=== PATIENT | male | born 1980 | race Caucasian/White ===

== ENCOUNTER 2016-11-10 19:18 | Emergency (ER) ==
[2016-11-10 19:34] VITALS: BP 138/94; TEMP 99; BMI 36.6
[2016-11-10] MEDS ORDERED: ROCEPHIN IM STA (19:40)
[2016-11-10] MEDS ORDERED: LIDOCAINE 1 % AMP 5 ML (SUTURES) IM STA (19:40)
[2016-11-10] MEDS ORDERED: TORADOL IM STA (19:40)
--- NOTE | 2016-11-10 19:44 | ED.PDOC ---
General ED Provider: Dr. GINNY CHARLES-ER Chief Complaint: Earache Stated Complaint: my ear hurts but i am not nauseated any more Time Seen by Physician: 19:35 Mode of Arrival: Walk-In Information Source: Patient Exam Limitations: No limitations Primary Care Provider: FRANCISCO KING Nursing and Triage Documentation Reviewed and Agree: Yes EENT Complaint Exam - Ear Complaint/Exam Onset/Duration: 24hrs Symptoms Are: Still present Timing: Constant Initial Severity: Mild Current Severity: Moderate Character: Reports: Dull pain, Aching pain Aggravating: Reports: None Alleviating: Reports: None Associated Signs and Symptoms: Reports: Headache, URI symptoms. Denies: Ear trauma, Ear swelling, Discharge, Fever, Hearing loss, Bleeding, Sore throat, Foreign body sensation, Rash, Pain to external ear, Pain to external face Related History: Reports: Similar Episode Ear Surgical History: None Vesicles to External Pinna: No Vesicles to Tragus: No TMJ Tenderness: None Mastoid Tenderness: None Tragal Tenderness: None Tympanic Membrane: Erythema, Dullness Differential Diagnoses: Otitis Media Review of Systems - Review Of Systems Constitutional: Reports: No symptoms Eyes: Reports: No symptoms Ears, Nose, Mouth, Throat: Reports: Ear pain Respiratory: Reports: No symptoms Cardiac: Reports: No symptoms GI: Reports: No symptoms : Reports: No symptoms Musculoskeletal: Reports: No symptoms Skin: Reports: No symptoms Neurological: Reports: No symptoms Endocrine: Reports: No symptoms Hematologic/Lymphatic: Reports: No symptoms All Other Systems: Reviewed and Negative Past Medical History - Past Medical History Previously Healthy: Yes Endocrine: Reports: None Cardiovascular: Reports: None Respiratory: Reports: None Hematological: Reports: None Gastrointestinal: Reports: None Genitourinary: Reports: None Neuro/Psych: Reports: None Musculoskeletal: Reports: None Cancer: Reports: None - Surgical History General Surgical History: Reports: Unknown - Family History Family History: Reports: Unknown - Social History Smoking Status: Never smoker Hx Substance Use: No Alcohol Screening: Occasionally Lives: With family Physical Exam - Physical Exam Appearance: Well-appearing, No pain distress, Well-nourished Pain Distress: Mild Eyes: GABRIELLE, EOMI, Conjunctiva clear ENT: Nose normal, Oropharynx normal, Erythema (right tm is erythematous) Respiratory: Airway patent, Breath sounds clear, Breath sounds equal, Respirations nonlabored Cardiovascular: RRR, Pulses normal, No rub, No murmur GI/: Soft, Nontender, No masses, Bowel sounds normal, No Organomegaly Musculoskeletal: Normal strength, ROM intact, No edema, No calf tenderness Skin: Warm, Dry, Normal color Neurological: Sensation intact, Motor intact, Reflexes intact, Cranial nerves intact, Alert, Oriented Psychiatric: Affect appropriate Critical Care Note - Critical Care Note Total Time (mins): 0 Course - Course Orders, Labs, Meds: Orders Category Date Time Status RAPID FLU A/B Stat LAB 11/10/16 19:33 Ordered STREP SCREEN Stat LAB 11/10/16 19:33 Ordered Ceftriaxone Sodium [Rocephin] MEDS 11/10/16 19:40 Discontinued 1 gm IM ONCE STA Ketorolac Tromethamine [Toradol] MEDS 11/10/16 19:40 Discontinued 60 mg IM ONCE STA Lidocaine HCl/Pf [Lidocaine 1 % Amp 5 ml (Sutures)] MEDS 11/10/16 19:40 Discontinued 2.1 ml IM ONCE STA Medications Discontinued Medications Generic Name Dose Route Start Last Admin Trade Name Chrissie PRN Reason Stop Dose Admin Ceftriaxone Sodium 1 gm 11/10/16 19:40 Rocephin IM 11/10/16 19:41 ONCE STA Ketorolac Tromethamine 60 mg 11/10/16 19:40 Toradol IM 11/10/16 19:41 ONCE STA Lidocaine HCl 2.1 ml 11/10/16 19:40 Lidocaine 1 % Amp 5 Ml (Sutures) IM 11/10/16 19:41 ONCE STA Vital Signs: Temp Pulse Resp BP Pulse Ox 11/10/16 19:31 99 F 80 20 138/94 H 96 Departure - Departure Time of Disposition: 19:44 Disposition: HOME SELF-CARE Discharge Problem: Otitis media Qualifiers: Otitis media type: unspecified Laterality: right Chronicity: unspecified Qualifier Code: (H66.91) Otitis media, unspecified, right ear Instructions: Otitis Media (ED) Condition: Good Pt referred to PMD for follow-up: Yes Additional Instructions: augmentin 875mg bid x 7 days--f/u with dr king in 2 days if not improving Allergies/Adverse Reactions: Allergies No Known Drug Allergies Adverse Reaction (Verified 11/10/16 19:34) Home Medications: Ambulatory Orders 1 [No Reported Medications] 11/10/16 Disposition Discussed With: Patient, Family
[2016-11-10 20:07] LABS: FLU INTERNAL QC INTERNAL QC VALID; RAPID FLU A NEGATIVE (NEGATIVE); RAPID FLU B NEGATIVE (NEGATIVE)
== END 2016-11-10 20:35 | disposition home or self-care (01) ==
LOC: ED 19:18
DX: H66.91 Otitis media, unspecified, right ear (principal)
CPT/HCPCS: 87651; 87804; 87880; 96372; 99283

== ENCOUNTER 2016-11-17 18:46 | Emergency (ER) ==
[2016-11-17 18:46] VITALS: BMI 36.6
[2016-11-17 18:49] VITALS: BP 151/92; TEMP 98.2
--- NOTE | 2016-11-17 19:04 | ED.PDOC ---
General ED Provider: Dr. GINNY CHARLES-ER Chief Complaint: Earache Stated Complaint: my ear still hurts Time Seen by Physician: 19:01 Mode of Arrival: Walk-In Information Source: Patient Exam Limitations: No limitations Primary Care Provider: FRANCISCO GREER Nursing and Triage Documentation Reviewed and Agree: Yes EENT Complaint Exam - Ear Complaint/Exam Onset/Duration: 2 weeks Symptoms Are: Still present Timing: Constant Initial Severity: Mild Current Severity: Mild Character: Reports: Dull pain, Aching pain Aggravating: Reports: None Alleviating: Reports: None Associated Signs and Symptoms: Reports: URI symptoms. Denies: Ear trauma, Ear swelling, Discharge, Fever, Hearing loss, Bleeding, Sore throat, Headache, Foreign body sensation, Rash, Pain to external ear Ear Surgical History: None Vesicles to External Pinna: No Vesicles to Tragus: No TMJ Tenderness: None Mastoid Tenderness: None Tragal Tenderness: None Tympanic Membrane: Dullness Differential Diagnoses: Otitis Media, Other Review of Systems - Review Of Systems Constitutional: Reports: No symptoms Eyes: Reports: No symptoms Ears, Nose, Mouth, Throat: Reports: Ear pain Respiratory: Reports: No symptoms Cardiac: Reports: No symptoms GI: Reports: No symptoms : Reports: No symptoms Musculoskeletal: Reports: No symptoms Skin: Reports: No symptoms Neurological: Reports: No symptoms Endocrine: Reports: No symptoms Hematologic/Lymphatic: Reports: No symptoms All Other Systems: Reviewed and Negative Past Medical History - Past Medical History Previously Healthy: Yes Endocrine: Reports: None Cardiovascular: Reports: None Respiratory: Reports: None Hematological: Reports: None Gastrointestinal: Reports: None Genitourinary: Reports: None Neuro/Psych: Reports: None Musculoskeletal: Reports: None Cancer: Reports: None - Surgical History General Surgical History: Reports: Unknown - Family History Family History: Reports: Unknown - Social History Smoking Status: Never smoker Hx Substance Use: No Alcohol Screening: Occasionally Physical Exam - Physical Exam Appearance: Well-appearing, No pain distress, Well-nourished Pain Distress: Mild Eyes: GABRIELLE, EOMI, Conjunctiva clear ENT: Ears normal, Nose normal Neck: Supple Respiratory: Airway patent, Breath sounds clear, Breath sounds equal, Respirations nonlabored Cardiovascular: RRR, Pulses normal, No rub, No murmur GI/: Soft, Nontender, No masses, Bowel sounds normal, No Organomegaly Musculoskeletal: Normal strength, ROM intact, No edema, No calf tenderness Skin: Warm Neurological: Sensation intact, Motor intact, Reflexes intact, Cranial nerves intact, Alert, Oriented Psychiatric: Affect appropriate, Mood appropriate Critical Care Note - Critical Care Note Total Time (mins): 0 Course - Course Vital Signs: Temp Pulse Resp BP Pulse Ox 11/17/16 18:46 98.2 F 76 20 151/92 H 96 Departure - Departure Time of Disposition: 19:02 Disposition: HOME SELF-CARE Discharge Problem: Ear problem TMJ (sprain of temporomandibular joint) Qualifiers: Encounter type: initial encounter Qualifier Code: (S03.40XA) Sprain of jaw, unspecified side, initial encounter Instructions: Otitis Media (ED) Condition: Good Pt referred to PMD for follow-up: Yes Additional Instructions: levaquin 500mg #7--toradol 10mg qid prn pain #16--talk to pcp about ent and dental referal Allergies/Adverse Reactions: Allergies No Known Drug Allergies Adverse Reaction (Verified 11/17/16 18:49) Home Medications: Ambulatory Orders 1 [No Reported Medications] 11/10/16 Disposition Discussed With: Patient, Family
== END 2016-11-17 19:11 | disposition home or self-care (01) ==
LOC: ED 18:46
DX: S03.40XA Sprain of jaw, unspecified side, initial encounter (principal); H92.09 Otalgia, unspecified ear
CPT/HCPCS: 99282

== ENCOUNTER 2016-12-09 17:57 | Emergency (ER) ==
[2016-12-09 17:58] VITALS: BMI 36.6
[2016-12-09 18:02] VITALS: BP 136/85; TEMP 99.1
--- NOTE | 2016-12-09 18:25 | ED.PDOC ---
General ED Provider: Dr. AGUILAR BRUNER JR Chief Complaint: Kidney Stone Stated Complaint: onset pain to left flank area thursday--would come and go-- feels like someone stabbing in back--pain has worsened--called dr office and advised to go to er for kidney stone eval[ End ]5 days 99.1 86 20 97% 136/85 Time Seen by Physician: 18:25 Mode of Arrival: Walk-In Information Source: Patient Exam Limitations: No limitations Primary Care Provider: FRANCISCO GREER Nursing and Triage Documentation Reviewed and Agree: No Review of Systems - Review Of Systems Constitutional: Reports: No symptoms Eyes: Reports: No symptoms Ears, Nose, Mouth, Throat: Reports: No symptoms Respiratory: Reports: No symptoms Cardiac: Reports: No symptoms GI: Reports: No symptoms : Reports: Flank pain (LEFT) Musculoskeletal: Reports: Back pain Skin: Reports: No symptoms Neurological: Reports: No symptoms Endocrine: Reports: No symptoms Hematologic/Lymphatic: Reports: No symptoms All Other Systems: Other Past Medical History - Past Medical History Previously Healthy: Yes Endocrine: Reports: None Cardiovascular: Reports: None Respiratory: Reports: None Hematological: Reports: None Gastrointestinal: Reports: None Genitourinary: Reports: None Neuro/Psych: Reports: None Musculoskeletal: Reports: None Cancer: Reports: None - Surgical History General Surgical History: Reports: Orthopedic (ankle ) - Family History Family History: Reports: Unknown - Social History Smoking Status: Never smoker Hx Substance Use: No Alcohol Screening: Occasionally Physical Exam - Physical Exam Appearance: Well-appearing, Obese Ill-appearing: Moderate Pain Distress: Moderate Eyes: GABRIELLE, EOMI, Conjunctiva clear ENT: Ears normal, Nose normal, Oropharynx normal Neck: Supple Respiratory: Airway patent, Breath sounds clear, Breath sounds equal, Respirations nonlabored Cardiovascular: RRR, Pulses normal, No rub, No murmur GI/: Soft, Nontender, No masses, Bowel sounds normal, No Organomegaly Musculoskeletal: Normal strength, ROM intact, No edema, No calf tenderness (NO BACK TENDERNESS) Skin: Warm, Dry, Normal color Neurological: Sensation intact, Motor intact, Reflexes intact, Cranial nerves intact, Alert, Oriented Psychiatric: Affect appropriate, Mood appropriate Critical Care Note - Critical Care Note Total Time (mins): 0 Course - Course Hematology/Chemistry: 12/09/16 18:45 12/09/16 18:45 Orders, Labs, Meds: Lab Review 12/09/16 12/09/16 18:25 18:45 WBC 8.42 RBC 5.26 Hgb 15.2 Hct 45.0 MCV 85.6 MCH 28.9 MCHC 33.8 RDW Coeff of Nasrin 12.2 Plt Count 225 Immature Gran % (Auto) 0.2 Neut % (Auto) 59.7 Lymph % (Auto) 28.5 [place] % (Auto) 8.8 Eos % (Auto) 2.1 Baso % (Auto) 0.7 Immature Gran # (Auto) 0.0 Neut # 5.0 Lymph # 2.4 [place] # 0.7 Eos # 0.2 Baso # 0.1 Sodium 140 Potassium 4.1 Chloride 104 Carbon Dioxide 26 Anion Gap 14.1 BUN 13 Creatinine 0.86 Estimated GFR (MDRD) 101.00 BUN/Creatinine Ratio 15.11 Glucose 83 Calcium 9.2 Total Bilirubin 0.71 AST 48 H ALT 113 H Alkaline Phosphatase 57 Total Protein 7.4 Albumin 4.1 Globulin 3.3 Albumin/Globulin Ratio 1.24 Amylase 42 Lipase 7 L Urine Color Yellow Urine Clarity Clear Urine pH 5.5 Ur Specific [place] >=1.030 Urine Protein Negative Urine Glucose (UA) Negative Urine Ketones Negative Urine Blood Negative Urine Nitrite Negative Urine Bilirubin Negative Urine Urobilinogen 0.2 Ur Leukocyte Esterase Negative Orders Category Date Time Status ED IV/MEDIPORT/POWERPORT .ONCE EMERGENCY 12/09/16 18:25 Active AMYLASE Stat LAB 12/09/16 18:45 Completed CBC W/ AUTO DIFF Stat LAB 12/09/16 18:45 Completed COMPREHENSIVE METABOLIC PANEL Stat LAB 12/09/16 18:45 Completed LIPASE Stat LAB 12/09/16 18:45 Completed URINALYSIS C & S IF INDICATED Stat LAB 12/09/16 18:25 Completed 0.9 % Sodium Chloride [Saline Flush] MEDS 12/09/16 18:25 Ordered 1 syr IVF PRN PRN Ketorolac Tromethamine [Toradol] MEDS 12/09/16 18:29 Discontinued 30 mg IVP ONCE STA Ondansetron HCl/Pf [Zofran 4 mg/2 ml] MEDS 12/09/16 18:29 Discontinued 4 mg IVP ONCE STA CT ABDOMEN/PELVIS WO CONTRAST Stat RADS 12/09/16 18:26 Completed Medications Generic Name Dose Route Start Last Admin Trade Name Freq PRN Reason Stop Dose Admin Sodium Chloride 1 syr 12/09/16 18:25 12/09/16 19:00 Saline Flush IVF 1 syr PRN PRN Administration To flush IV Discontinued Medications Generic Name Dose Route Start Last Admin Trade Name Freq PRN Reason Stop Dose Admin Ketorolac Tromethamine 30 mg 12/09/16 18:29 12/09/16 18:59 Toradol IVP 12/09/16 18:30 30 mg ONCE STA Administration Ondansetron HCl 4 mg 12/09/16 18:29 12/09/16 18:56 Zofran 4 Mg/2 Ml IVP 12/09/16 18:30 4 mg ONCE STA Administration Vital Signs: Temp Pulse Resp BP Pulse Ox 12/09/16 17:58 99.1 F 86 20 136/85 97 Departure - Departure Time of Disposition: 19:34 Disposition: HOME SELF-CARE Discharge Problem: Low back strain Qualifiers: Encounter type: initial encounter Qualifier Code: (S39.012A) Strain of muscle, fascia and tendon of lower back, initial encounter Instructions: Low Back Strain (ED) Condition: Good Pt referred to PMD for follow-up: Yes Additional Instructions: ICE 20 MINUTES THREE TIMES A DAY LIMIT LIFTING UNTIL PAIN IMPROVED NAPROSYN FOR PAIN FLEXERIL FOR SPASMS RETURN IF WORSENING RECHECK pmd 2-3 WEEKS RECHECK Prescriptions: Naproxen [Naprosyn] 500 mg PO Q12HR PRN #30 tablet PRN Reason: PAIN Cyclobenzaprine HCl [Flexeril] 5 mg PO TID PRN #15 tablet PRN Reason: Spasms Allergies/Adverse Reactions: Allergies No Known Drug Allergies Adverse Reaction (Verified 12/09/16 18:02) Home Medications: Ambulatory Orders Cyclobenzaprine HCl [Flexeril] 5 mg PO TID PRN #15 tablet 12/09/16 Naproxen [Naprosyn] 500 mg PO Q12HR PRN #30 tablet 12/09/16
[2016-12-09] MEDS ORDERED: TORADOL IVP STA (18:29)
[2016-12-09] MEDS ORDERED: ZOFRAN 4 MG/2 ML IVP STA (18:29)
[2016-12-09 18:33] LABS: ADD URINE MICROSCOPIC NO; BILIRUBIN,URINE Negative (NEGATIVE); KETONES,URINE Negative (NEGATIVE); LEUKOCYTE ESTERASE ,URINE Negative (NEGATIVE); NITRITE,URINE Negative (NEGATIVE); PH,URINE 5.5 (5-9); PROTEIN,URINE Negative (NEGATIVE); URINE, BLOOD Negative (NEGATIVE)
[2016-12-09 18:48] LABS: BASOPHILS # (AUTO) 0.1 K/uL (0-0.2); BASOPHILS % (AUTO) 0.7 % (0.0-3.0); EOSINOPHILS # (AUTO) 0.2 K/ul (0.0-0.7); EOSINOPHILS % (AUTO) 2.1 % (0.0-7.0); HEMOGLOBIN 15.2 g/dl (14.0-18.0); IMMATURE GRANULOCYTE % (AUTO) 0.2 % (0.0-5.0); LYMPHOCYTES # (AUTO) 2.4 K/uL (0.60-3.4); LYMPHOCYTES % (AUTO) 28.5 (10.0-50.0); MEAN CORPUSCULAR HEMOGLOBIN 28.9 pg (27.0-31.0); MEAN CORPUSCULAR HGB CONC 33.8 (31.8-35.4); MEAN CORPUSCULAR VOLUME 85.6 fl (80.0-94.0); MONOCYTES # (AUTO) 0.7 K/uL (0.4-2.0); MONOCYTES % (AUTO) 8.8 (0-10); NEUTROPHILS % (AUTO) 59.7; PLATELET COUNT 225 10^3/uL (140-440); RED BLOOD COUNT 5.26 10^6/ul (4.70-6.10); WHITE BLOOD COUNT 8.42 K/ul (4.2-10.2)
--- NOTE | 2016-12-09 19:02 | CT ---
EXAM: CT abdomen and pelvis without contrast HISTORY: Abdominal pain TECHNIQUE: Multi-slice transaxial helical with coronal and sagittal reformed images COMPARISON: None FINDINGS: The lung bases are free of acute airspace or interstitial opacities. The heart size is no rmal. There are no pericardial or pleural effusions. The hepatic attenuation is normal relative to the spleen. The gallbladder is present without biliar y dilatation. The pancreas and adrenal glands are normal. The spleen has normal size and attenuati on. The kidneys ureters are normal. The nonopacified bladder is almost empty and is difficult to assess . There are phleboliths in the pelvis. The intestines including the appendix maintain normal caliber without evidence of obstruction or acu te inflammation. No lymphadenopathy or ascites are appreciated. The aorta has normal caliber. The bones are free of suspicious osteolytic or osteoblastic lesions. IMPRESSION: 1. Nonobstructive intestinal gas pattern. Normal appendix. 2. Normal renal collecting systems. 3. Normal biliary tree. 4. No lymphadenopathy or ascites.
[2016-12-09 19:13] LABS: ALBUMIN 4.1 g/dL (3.4-5.0); ALBUMIN/GLOBULIN RATIO 1.24; ANION GAP 14.1; BILIRUBIN,TOTAL 0.71 mg/dL (0.00-1.20); BUN/CREATININE RATIO 15.11; CALCIUM 9.2 mg/dL (8.2-10.2); CREATININE 0.86 mg/dL (0.60-1.10); POTASSIUM 4.1 mmol/L (3.5-5.1); TOTAL PROTEIN 7.4 g/dL (6.4-8.2)
== END 2016-12-09 19:51 | disposition home or self-care (01) ==
LOC: ED 17:57
DX: S39.012A Strain of muscle, fascia and tendon of lower back, initial encounter (principal)
CPT/HCPCS: 36415; 80053; 81001; 82150; 83690; 85025; 96374; 96375; 99283

== ENCOUNTER 2017-07-30 21:12 | Emergency (ER) ==
[2017-07-30 21:24] VITALS: TEMP 98.4; BMI 40.4
[2017-07-30 22:39] LABS: FLU INTERNAL QC INTERNAL QC VALID; RAPID FLU A NEGATIVE (NEGATIVE); RAPID FLU B NEGATIVE (NEGATIVE)
[2017-07-30] MEDS ORDERED: TESSALON PERLES PO STA (22:57)
[2017-07-30] MEDS ORDERED: ZITHROMAX PO STA (22:57)
--- NOTE | 2017-07-30 23:00 | ED.PDOC ---
General ED Provider: Dr. NANCI WEBER Chief Complaint: Cough Stated Complaint: Pateint states he has had a cough for few days. Time Seen by Physician: 21:50 Mode of Arrival: Walk-In Information Source: Patient Exam Limitations: No limitations Primary Care Provider: FRANCISCO GREER Nursing and Triage Documentation Reviewed and Agree: Yes Respiratory Complaint Exam - Respiratory Complaint/Exam Onset/Duration: 2 weeks Symptoms Are: Still present Timing: Intermittent Initial Severity: Moderate Current Severity: Moderate Location: Chest Character: Reports: Non-productive cough Aggravating: Reports: URI, Weather Alleviating: Reports: None Associated Signs and Symptoms: Reports: URI. Denies: Dyspnea, Fever History of Healthcare-Acquired Pneumonia: No Related Surgical History: Reports: None Pulmonary Embolism Risk Factors: None Cardiac Risk Factors: Reports: None Pseudomonas Risk Factors: Reports: None Tuberculosis Risk Factors: Reports: None Status Asthmaticus Risk Factors: Reports: None Home Oxygen Use: No Recent Stress Test: No Recent Echo/LV Function: No Current Antibiotic Use: No Current Asthma Medication Use: No Respiratory Distress: None Inadequate Respiratory Effort: No Dysphagia Present: No Stridor Present: No JVD Present: No Accessory Muscle Use: No Retractions: Not Present Diminished Breath Sounds: No Sinus Tenderness: None Grunting Respirations: No Kussmaul Respirations: No Differential Diagnoses: Bronchitis Review of Systems - Review Of Systems Constitutional: Reports: No symptoms Eyes: Reports: No symptoms Ears, Nose, Mouth, Throat: Reports: No symptoms Respiratory: Reports: Cough Cardiac: Reports: No symptoms GI: Reports: No symptoms : Reports: No symptoms Musculoskeletal: Reports: No symptoms Skin: Reports: No symptoms Neurological: Reports: No symptoms Endocrine: Reports: No symptoms Hematologic/Lymphatic: Reports: No symptoms All Other Systems: Reviewed and Negative Past Medical History - Past Medical History Previously Healthy: Yes Endocrine: Reports: None Cardiovascular: Reports: None Respiratory: Reports: None Hematological: Reports: None Gastrointestinal: Reports: None Genitourinary: Reports: None Neuro/Psych: Reports: None Musculoskeletal: Reports: None Cancer: Reports: None - Surgical History General Surgical History: Reports: Orthopedic (ankle ) - Family History Family History: Reports: Unknown - Social History Smoking Status: Never smoker Hx Substance Use: No Alcohol Screening: None - Immunizations Tetanus Shot up to Date: Yes Physical Exam - Physical Exam Appearance: Well-appearing, No pain distress, Obese Eyes: GABRIELLE, EOMI, Conjunctiva clear ENT: Ears normal, Nose normal, Oropharynx normal Neck: Supple Respiratory: Airway patent, Breath sounds clear, Breath sounds equal, Respirations nonlabored Cardiovascular: RRR, Pulses normal, No rub, No murmur GI/: Soft, Nontender, No masses, Bowel sounds normal, No Organomegaly Musculoskeletal: Normal strength, ROM intact, No edema, No calf tenderness Skin: Warm, Dry, Normal color Neurological: Sensation intact, Motor intact, Cranial nerves intact, Alert, Oriented Psychiatric: Affect appropriate, Mood appropriate Critical Care Note - Critical Care Note Total Time (mins): 0 Course - Course Orders, Labs, Meds: Lab Review 07/30/17 21:52 Influenza A (Rapid) Negative Influenza B (Rapid) Negative Orders Category Date Time Status FLU A & B RAPID TEST [RAPID FLU A/B] Stat LAB 07/30/17 21:52 Completed MOLECULAR GROUP A STREP Stat LAB 07/30/17 21:52 Results STREP SCREEN Stat LAB 07/30/17 21:52 Results Azithromycin [Zithromax] MEDS 07/30/17 22:57 Discontinued 500 mg PO ONCE STA Benzonatate [Tessalon Perles] MEDS 07/30/17 22:57 Discontinued 100 mg PO ONCE STA Medications Discontinued Medications Generic Name Dose Route Start Last Admin Trade Name Chrissie PRN Reason Stop Dose Admin Azithromycin 500 mg 07/30/17 22:57 07/30/17 23:09 Zithromax PO 07/30/17 22:58 500 mg ONCE STA Administration Benzonatate 100 mg 07/30/17 22:57 07/30/17 23:09 Tessalon Perles PO 07/30/17 22:58 100 mg ONCE STA Administration Vital Signs: Temp Pulse Resp BP Pulse Ox 07/30/17 23:11 98.4 F 75 18 116/71 96 07/30/17 21:15 98.4 F 80 20 147/100 H 95 Departure - Departure Time of Disposition: 22:59 Disposition: HOME SELF-CARE Discharge Problem: Acute bronchitis Qualifiers: Bronchitis organism: other organism Qualified Code(s): J20.8 - Acute bronchitis due to other specified organisms Instructions: Acute Bronchitis (ED), Allergies (ED) Condition: Fair Pt referred to PMD for follow-up: Yes Additional Instructions: Take medications as prescribed Follow up with PCP in 3 days. Prescriptions: Azithromycin [Zithromax] 250 mg PO DIRECTED #4 tablet Benzonatate [Tessalon Perles] 100 mg PO TID PRN #25 capsule PRN Reason: Cold Symptons Allergies/Adverse Reactions: Allergies No Known Drug Allergies Adverse Reaction (Verified 07/30/17 21:26) Home Medications: Ambulatory Orders Azithromycin [Zithromax] 250 mg PO DIRECTED #4 tablet 07/30/17 Benzonatate [Tessalon Perles] 100 mg PO TID PRN #25 capsule 07/30/17 Budesonide/Formoterol Fumarate [Symbicort 80-4.5 Mcg Inhaler] 1 puff IH BID 03/09 Disposition Discussed With: Patient
[2017-07-30 23:14] VITALS: BP 116/71
== END 2017-07-30 23:20 | disposition home or self-care (01) ==
LOC: ED 21:12
DX: J20.9 Acute bronchitis, unspecified (principal)
CPT/HCPCS: 87651; 87804; 87880; 99283

== ENCOUNTER 2017-10-01 18:10 | Emergency (ER) ==
[2017-10-01 18:25] VITALS: BP 154/97; TEMP 100.5; BMI 38.6
[2017-10-01] MEDS ORDERED: DECADRON 4 MG/ML SDV IM STA (20:01)
--- NOTE | 2017-10-01 20:04 | ED.PDOC ---
General ED Provider: Dr. CALEB HADDAD Chief Complaint: Fever Stated Complaint: Diarrhea, coughing, fever, bodyaches Time Seen by Physician: 20:03 Mode of Arrival: Walk-In Information Source: Patient Primary Care Provider: FRANCISCO GREER Nursing and Triage Documentation Reviewed and Agree: Yes Reviewed sepsis parameters & appropriate labs ordered?: No System Inflammatory Response Syndrome: Not Applicable Sepsis Protocol: For patient's 13 years and over: Temp is 96.8 and below OR 101 and greater Pulse >90 BPM Resp >20/minute Acutely Altered Mental Status Are patient's symptoms suggestive of a new infection, such as: -Pneumonia -Skin, Soft Tissue -Endocarditis -UTI -Bone, Joint Infection -Implantable Device -Acute Abdominal Infection -Wound Infection -Meningitis -Blood Stream Catheter Infection -Unknown Miscellaneous Complaint Exam - Febrile Illness/Adult Complaint/Exam Symptoms Are: Still present Timing: Intermittent Episodes Lasting: Hours Initial Severity: Moderate Current Severity: Mild Aggravating: Reports: None Alleviating: Reports: OTC Meds Associated Signs and Symptoms: Reports: Nausea. Denies: Headache, Fluid intake , Short of air, Cough, Sore throat, Vomiting, Chills, Diaphoresis, Dysuria, Arthralgia, Stiff neck, Myalgia, Rash, Altered mental status Pseudomonas Risk Factors: Reports: None Serious Bacterial Infection Risk Factors: Reports: None Current Antibiotic Use: No Differential Diagnoses: Viremia Review of Systems - Review Of Systems Constitutional: Reports: Fever, Malaise, Weakness Eyes: Reports: No symptoms Ears, Nose, Mouth, Throat: Reports: No symptoms Respiratory: Reports: Cough Cardiac: Reports: No symptoms GI: Reports: Diarrhea : Reports: No symptoms Musculoskeletal: Reports: No symptoms Skin: Reports: No symptoms Neurological: Reports: No symptoms Endocrine: Reports: No symptoms Hematologic/Lymphatic: Reports: No symptoms All Other Systems: Reviewed and Negative Past Medical History - Past Medical History Previously Healthy: Yes Endocrine: Reports: None Cardiovascular: Reports: None Respiratory: Reports: None Hematological: Reports: None Gastrointestinal: Reports: None Genitourinary: Reports: None Neuro/Psych: Reports: None Musculoskeletal: Reports: None Cancer: Reports: None - Surgical History General Surgical History: Reports: Orthopedic (ankle ) - Family History Family History: Reports: Unknown - Social History Smoking Status: Never smoker Hx Substance Use: No Alcohol Screening: None Physical Exam - Physical Exam Appearance: Ill-appearing Eyes: GABRIELLE, EOMI, Conjunctiva clear ENT: Ears normal, Nose normal, Oropharynx normal Respiratory: Airway patent, Breath sounds clear, Breath sounds equal, Respirations nonlabored Cardiovascular: RRR, Pulses normal, No rub, No murmur GI/: Soft, Nontender, No masses, Bowel sounds normal, No Organomegaly Musculoskeletal: Normal strength, ROM intact, No edema, No calf tenderness Skin: Warm, Dry, Normal color Neurological: Sensation intact, Motor intact, Reflexes intact, Cranial nerves intact, Alert, Oriented Psychiatric: Affect appropriate, Mood appropriate Critical Care Note - Critical Care Note Total Time (mins): 15 Course - Course Orders, Labs, Meds: Lab Review 10/01/17 20:12 Influenza A (Rapid) Negative by naat Influenza B (Rapid) Negative by naat Orders Category Date Time Status FLU A/B MOLECULAR Stat LAB 10/01/17 20:12 Completed Dexamethasone 4 mg/ml Inj [Decadron 4 mg/ml Sdv] MEDS 10/01/17 20:01 Discontinued 4 mg IM ONCE STA Medications Discontinued Medications Generic Name Dose Route Start Last Admin Trade Name Freq PRN Reason Stop Dose Admin Dexamethasone Sodium Phosphate 4 mg 10/01/17 20:01 10/01/17 20:07 Decadron 4 Mg/Ml Sdv IM 10/01/17 20:02 4 mg ONCE STA Administration Vital Signs: Temp Pulse Resp BP Pulse Ox 10/01/17 18:12 100.5 F H 94 H 20 154/97 H 97 Departure - Departure Time of Disposition: 20:35 Disposition: HOME SELF-CARE Discharge Problem: Gastroenteritis Instructions: Dehydration (ED), Gastroenteritis (ED) Condition: Stable Pt referred to PMD for follow-up: Yes IPMP verified?: No Additional Instructions: Increase Hydration Tylenol prn Soft diet for 2 days if not better f/u with PMD Prescriptions: Guaifenesin/Dextromethorphan [Robitussin Cough-Chest Dm Liq] 10 ml PO TID #1 bottle Ondansetron [Zofran Odt] 4 mg PO Q8H #20 tab.rapdis Allergies/Adverse Reactions: Allergies No Known Drug Allergies Adverse Reaction (Verified 07/30/17 21:26) Home Medications: Ambulatory Orders Budesonide/Formoterol Fumarate [Symbicort 80-4.5 Mcg Inhaler] 1 puff IH BID 03/09 Guaifenesin/Dextromethorphan [Robitussin Cough-Chest Dm Liq] 10 ml PO TID #1 bottle 10/01/17 Montelukast Sodium [Singulair] 10 mg PO BEDTIME 10/01/17 Ondansetron [Zofran Odt] 4 mg PO Q8H #20 tab.rapdis 10/01/17 Disposition Discussed With: Patient, Family
== END 2017-10-01 20:37 | disposition home or self-care (01) ==
LOC: ED 18:10
DX: K52.9 Noninfective gastroenteritis and colitis, unspecified (principal); E86.0 Dehydration
CPT/HCPCS: 87502; 96372; 99282

== ENCOUNTER 2018-05-17 21:48 | Emergency (ER) ==
[2018-05-17 21:58] VITALS: BP 136/88; TEMP 97.8; BMI 21.6
--- NOTE | 2018-05-17 22:32 | ED.PDOC ---
General ED Provider: Dr. 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 Thinks he was exposed to poison ROBERT. Time Seen by Physician: 22:27 Mode of Arrival: Walk-In Information Source: Patient Exam Limitations: No limitations Primary Care Provider: FRANCISCO GREER Nursing and Triage Documentation Reviewed and Agree: Yes Does patient meet sepsis criteria?: No System Inflammatory Response Syndrome: Not Applicable Sepsis Protocol: For patient's 13 years and over: Temp is 96.8 and below OR 101 and greater Pulse >90 BPM Resp >20/minute Acutely Altered Mental Status Are patient's symptoms suggestive of a new infection, such as: -Pneumonia -Skin, Soft Tissue -Endocarditis -UTI -Bone, Joint Infection -Implantable Device -Acute Abdominal Infection -Wound Infection -Meningitis -Blood Stream Catheter Infection -Unknown Skin Complaint Exam - Skin Rash/Itching Complaint/Exam Onset/Duration: 1 day Symptoms Are: Still present Initial Severity: Mild Current Severity: Moderate Location: chest and upper exremities Potential Exposures: Reports: Plants Prior Treatment: lotion Aggravating: Reports: None Alleviating: Reports: None Associated Signs and Symptoms: Denies: Difficulty breathing, Fever, Chills Skin Findings: Present: Urticaria Differential Diagnoses: Allergic Reaction, Urticaria Review of Systems - Review Of Systems Constitutional: Reports: No symptoms Eyes: Reports: No symptoms Ears, Nose, Mouth, Throat: Reports: No symptoms Respiratory: Reports: No symptoms Cardiac: Reports: No symptoms GI: Reports: No symptoms : Reports: No symptoms Musculoskeletal: Reports: No symptoms Skin: Reports: Rash Neurological: Reports: No symptoms Endocrine: Reports: No symptoms Hematologic/Lymphatic: Reports: No symptoms All Other Systems: Reviewed and Negative Past Medical History - Past Medical History Previously Healthy: Yes Endocrine: Reports: None Cardiovascular: Reports: None Respiratory: Reports: None Hematological: Reports: None Gastrointestinal: Reports: None Genitourinary: Reports: None Neuro/Psych: Reports: None Musculoskeletal: Reports: None Cancer: Reports: None - Surgical History General Surgical History: Reports: Orthopedic (ankle ) - Family History Family History: Reports: Unknown - Social History Smoking Status: Never smoker Hx Substance Use: No Alcohol Screening: None Physical Exam - Physical Exam Appearance: Well-appearing, No pain distress, Well-nourished Eyes: GABRIELLE, EOMI, Conjunctiva clear ENT: Ears normal, Nose normal, Oropharynx normal Respiratory: Airway patent, Breath sounds clear, Breath sounds equal, Respirations nonlabored Cardiovascular: RRR, Pulses normal, No rub, No murmur GI/: Soft, Nontender, No masses, Bowel sounds normal, No Organomegaly Musculoskeletal: Normal strength, ROM intact, No edema, No calf tenderness Neurological: Sensation intact, Motor intact, Reflexes intact, Cranial nerves intact, Alert, Oriented Psychiatric: Affect appropriate, Mood appropriate Critical Care Note - Critical Care Note Total Time (mins): 0 Course - Course Orders, Labs, Meds: Orders Category Date Time Status Methylprednisolone Sod Succ/Pf [Solu-Medrol 125 mg] MEDS 05/17/18 22:25 Discontinued 125 mg IM ONCE STA Medications Discontinued Medications Generic Name Dose Route Start Last Admin Trade Name Freq PRN Reason Stop Dose Admin Methylprednisolone Sodium Succinate 125 mg 05/17/18 22:25 05/17/18 22:40 Solu-Medrol 125 Mg IM 05/17/18 22:26 125 mg ONCE STA Administration Vital Signs: Temp Pulse Resp BP Pulse Ox 05/17/18 21:53 97.8 F 60 20 136/88 96 Departure - Departure Time of Disposition: 22:32 Disposition: HOME SELF-CARE Discharge Problem: Pruritic rash, Poison robert dermatitis Instructions: Poison Robert (ED) Condition: Stable Pt referred to PMD for follow-up: Yes IPMP verified?: No Additional Instructions: may take home benadryl as needed for itching take Prednisone as prescribed. may also use zyrtec as needed for allergies. Prescriptions: Prednisone 20 mg PO DAILYWM #5 tablet Allergies/Adverse Reactions: Allergies No Known Drug Allergies Adverse Reaction (Verified 07/30/17 21:26) Home Medications: Ambulatory Orders Budesonide/Formoterol Fumarate [Symbicort 80-4.5 Mcg Inhaler] 1 puff IH BID 03/09 Montelukast Sodium [Singulair] 10 mg PO BEDTIME 10/01/17 Prednisone 20 mg PO DAILYWM #5 tablet 05/17/18 Disposition Discussed With: Patient, Family
[2018-05-17] MEDS: SOLU-MEDROL 125 MG IM STA (22:40)
== END 2018-05-17 23:10 | disposition home or self-care (01) ==
LOC: ED 21:48
DX: L23.7 Allergic contact dermatitis due to plants, except food (principal)
CPT/HCPCS: 96372; 99282

== ENCOUNTER 2019-01-17 14:25 | Emergency (ER) | payer OTHER ==
[2019-01-17 14:30] VITALS: BP 155/94; TEMP 98.5; BMI 37.6
--- NOTE | 2019-01-17 15:40 | ED.PDOC ---
General ED Provider: Dr. ONIEL REEDER Chief Complaint: Earache Stated Complaint: left ear pain and nasal d/c and sinus pain Time Seen by Physician: 14:30 Mode of Arrival: Walk-In Information Source: Patient Exam Limitations: No limitations Primary Care Provider: FRANCISCO GREER Nursing and Triage Documentation Reviewed and Agree: Yes Does patient meet sepsis criteria?: No If yes, has appropriate treatment been initiated?: No System Inflammatory Response Syndrome: Not Applicable Sepsis Protocol: For patient's 13 years and over: Temp is 96.8 and below OR 101 and greater Pulse >90 BPM Resp >20/minute Acutely Altered Mental Status Are patient's symptoms suggestive of a new infection, such as: -Pneumonia -Skin, Soft Tissue -Endocarditis -UTI -Bone, Joint Infection -Implantable Device -Acute Abdominal Infection -Wound Infection -Meningitis -Blood Stream Catheter Infection -Unknown EENT Complaint Exam - Ear Complaint/Exam Onset/Duration: 1 week Symptoms Are: Still present Timing: Intermittent Initial Severity: Moderate Current Severity: Mild Character: Reports: Dull pain Aggravating: Reports: None Alleviating: Reports: None Associated Signs and Symptoms: Reports: URI symptoms. Denies: Ear trauma, Ear swelling, Discharge, Fever, Hearing loss, Bleeding, Sore throat, Headache, Foreign body sensation, Rash, Pain to external ear, Pain to external face Related History: Reports: Similar Episode Ear Surgical History: None Vesicles to External Pinna: No Vesicles to Tragus: No TMJ Tenderness: None Mastoid Tenderness: None Tragal Tenderness: None External Canal: Normal Material in Canal: Present: Cerumen (left), Cerumen impaction (partial). Absent : Discharge, Blood, Foreign body Differential Diagnoses: Cerumen Impaction, URI, Other (sinusitis) Review of Systems - Review Of Systems Constitutional: Reports: No symptoms Eyes: Reports: No symptoms Ears, Nose, Mouth, Throat: Reports: Ear pain (left, maxillary sinus pain) Respiratory: Reports: No symptoms Cardiac: Reports: No symptoms GI: Reports: No symptoms : Reports: No symptoms Musculoskeletal: Reports: No symptoms Skin: Reports: No symptoms Neurological: Reports: No symptoms Endocrine: Reports: No symptoms Hematologic/Lymphatic: Reports: No symptoms All Other Systems: Reviewed and Negative Past Medical History - Past Medical History Previously Healthy: Yes Endocrine: Reports: None Cardiovascular: Reports: None Respiratory: Reports: None Hematological: Reports: None Gastrointestinal: Reports: None Genitourinary: Reports: None Neuro/Psych: Reports: None Musculoskeletal: Reports: None Cancer: Reports: None - Surgical History General Surgical History: Reports: Orthopedic (ankle ) - Family History Family History: Reports: Unknown - Social History Smoking Status: Never smoker Hx Substance Use: No Alcohol Screening: None - Immunizations Tetanus Shot up to Date: Yes Physical Exam - Physical Exam Appearance: Well-appearing, No pain distress, Well-nourished Eyes: GABRIELLE, EOMI, Conjunctiva clear ENT: Ears normal (right, partially impacted left, sinus tender maxillary ) Respiratory: Airway patent, Breath sounds clear, Breath sounds equal, Respirations nonlabored Cardiovascular: RRR, Pulses normal, No rub, No murmur GI/: Soft, Nontender, No masses, Bowel sounds normal, No Organomegaly Musculoskeletal: Normal strength, ROM intact, No edema, No calf tenderness Skin: Warm, Dry, Normal color Neurological: Sensation intact, Motor intact, Reflexes intact, Cranial nerves intact, Alert, Oriented Psychiatric: Affect appropriate, Mood appropriate Critical Care Note - Critical Care Note Total Time (mins): 0 Course - Course Vital Signs: Temp Pulse Resp BP Pulse Ox 01/17/19 14:25 98.5 F 70 16 155/94 H 96 Departure - Departure Time of Disposition: 15:40 Disposition: HOME SELF-CARE Discharge Problem: Sinusitis Qualifiers: Sinusitis location: maxillary Chronicity: acute Recurrence: recurrent Qualified Code(s): J01.01 - Acute recurrent maxillary sinusitis Impacted ear wax Qualifiers: Laterality: left Qualified Code(s): H61.22 - Impacted cerumen, left ear Instructions: Cerumen Impaction (ED), Sinusitis (ED), Ear Infection (ED) Condition: Good Pt referred to PMD for follow-up: Yes IPMP verified?: No Additional Instructions: Please call your Family Physician as soon as possible to schedule a follow-up appointment. Prescriptions: Azithromycin [Zithromax] 500 mg PO DIRECTED #6 tablet Prednisone 40 mg PO DAILYWM #5 tablet Allergies/Adverse Reactions: Allergies No Known Drug Allergies Adverse Reaction (Verified 01/17/19 15:11) Home Medications: Ambulatory Orders Azithromycin [Zithromax] 500 mg PO DIRECTED #6 tablet 01/17/19 Prednisone 40 mg PO DAILYWM #5 tablet 01/17/19
== END 2019-01-17 15:51 | disposition home or self-care (01) ==
LOC: ED 14:25
DX: J01.01 Acute recurrent maxillary sinusitis (principal); H61.22 Impacted cerumen, left ear
CPT/HCPCS: 99282